=== PATIENT | male | born 1955 | race Caucasian/White ===

== ENCOUNTER 2024-03-17 00:53 | Inpatient (IN) | payer OTHER, MEDICARE ==
[2024-03-17] VITALS (82 sets, daily range): BP systolic 79–129; BP diastolic 61–92; PULSE 75–106; RESP 17–35; TEMP 97.7–102.3
[~2024-03-17] VITALS: Ht 177.8 cm; Wt 103.0 kg
[2024-03-17] MEDS ORDERED: AMIODARONE 150MG/100ML 100 ML IV ONE (01:15)
[2024-03-17] MEDS ORDERED: AMIODARONE 150MG/100ML 100 ML IV NR (01:30)
[2024-03-17] MEDS ORDERED: AMIODARONE HCL 900 MG in DEXT 5% WATER 500 ML IV NR (01:30)
[2024-03-17] MEDS ORDERED: ACETAMINOPHEN 650MG/20.3ML UDC NG PRN (01:45)
[2024-03-17] MEDS ORDERED: ACETAMINOPHEN 650MG SUPP PR PRN (01:45)
[2024-03-17] MEDS: SODIUM CHLORIDE 0.9% 1,000 ML IV ONE (01:56)
[2024-03-17] MEDS ORDERED: MIDAZOLAM HCL 2 MG/2 ML VIAL ONE ×3 (02:00→03:36)
[2024-03-17] MEDS ORDERED: LIDOCAINE HCL 1% 20ML VIAL ONE (02:00)
[2024-03-17] MEDS ORDERED: FENTANYL CITRATE/PF 50MCG/ML 2ML VIAL ONE (02:01)
[2024-03-17] MEDS ORDERED: HEPARIN 1000 UNITS/ML 10ML ONE (02:01)
[2024-03-17] MEDS ORDERED: IODIXANOL 320 MG/ML 150ML BOTTLE IV ONE (02:01)
[2024-03-17] MEDS: SODIUM BICARBONATE 150 MEQ in DEXTROSE 5% WATER 850 ML IV SCH (02:05)
[2024-03-17] MEDS: ONDANSETRON HCL 4MG/2ML INJ IV STA (02:05)
[2024-03-17] MEDS: EPINEPHRINE 5 MG in SODIUM CHLORIDE 0.9% 245 ML IV STA (02:08)
[2024-03-17] MEDS: NOREPINEPHRINE 8MG/250ML PMX 250 ML IV STA (02:09)
[2024-03-17] MEDS ORDERED: EPINEPHRINE 5 MG in SODIUM CHLORIDE 0.9% 245 ML IV NR (02:15)
[2024-03-17] MEDS: AMIODARONE HCL 900 MG in DEXT 5% WATER 500 ML IV ONE (02:17)
[2024-03-17] MEDS: MAGNESIUM 4 G PREMIX 100 ML IV ONE (02:19)
[2024-03-17 02:20] LABS: BG BASE EXCESS -6.9 mmol/L (-2.0-2.0); BG CARBOXYHEMOGLOBIN 0.3 % (0.5-1.5); BG DEOXYHEMOGLOBIN 2.6 % (0.0-5.0); BG FRACTION INSPIRED OXYGEN 100; BG HCO3 ACT 19.5 mmol/L (22.0-26.0); BG METHEMOGLOBIN 0.4 % (0.0-1.5); BG OXYGEN SATURATION 97.4 % (92.0-98.5); BG OXYHEMOGLOBIN 96.7 % (94.0-97.0); BG PCO2 42.5 mmHg (35.0-45.0); BG PO2 115.2 mmHg (75.0-100.0); BG SAMPLE SITE RIGHT FEMORAL; BG TOTAL HEMOGLOBIN 15.4 g/dL (12.0-18.0); BG TOTAL RESPIRATORY RATE 26 b/min; BG VENT MODE VENT - AC
[2024-03-17 02:25] LABS: BASOPHILS % 0.3 % (0.0-2.0); HEMATOCRIT. 41.6 % (42.0-52.0); HEMOGLOBIN. 13.6 g/dL (14.0-18.0); MEAN CORPUSCULAR HEMOGLOBIN 30.4 pg (28.0-32.0); MEAN CORPUSCULAR HGB CONC 32.7 g/dL (31.0-37.0); MEAN PLATELET VOLUME 10.5 fl (7.4-10.4); MONOCYTES % 2.3 % (2.0-8.0); NEUTROPHILS % 65.4 % (40.0-76.0); PLATELET 133 x1000/uL (130-400); RED BLOOD CELL COUNT 4.48 mill/uL (4.7-6.1); RED CELL DISTRIBUTION WIDTH 15.4 % (11.6-14.6); WHITE BLOOD COUNT 17.1 x1000/uL (4.5-11.0)
[2024-03-17 02:37] LABS: CHLORIDE 108 mEq/L (98-107); SODIUM 146 mEq/L (136-145)
[2024-03-17 02:38] LABS: CALCIUM 7.7 mg/dL (8.7-10.4); CARBON DIOXIDE 22 mEq/L (21-32)
[2024-03-17 02:43] LABS: CREATININE 1.3 mg/dL (0.6-1.3); GLUCOSE 309 mg/dL (70-105); UREA NITROGEN BLOOD 13 mg/dL (9-23)
[2024-03-17] MEDS ORDERED: CARVEDILOL 3.125 MG TABLET PO NR (02:45)
[2024-03-17] MEDS ORDERED: ASPIRIN 81MG TABLET PO NR (02:45)
[2024-03-17 02:50] LABS: D-DIMER 34.11 mg/L FEU (<0.50); INR 1.2; PARTIAL THROMBOPLASTIN TIME 30.5 sec (23.4-31.0); PROTHROMBIN TIME 13.2 sec (9.6-11.0)
[2024-03-17 03:25] LABS: PHOSPHORUS 8.6 mg/dL (2.5-4.9); TROPONIN I HIGH SENSITIVITY 921 ng/L (3.0-53)
[2024-03-17] MEDS ORDERED: ATROPINE SULFATE 1MG/10ML SYR IV PRN (03:30)
[2024-03-17] MEDS ORDERED: MIDAZOLAM HCL 2 MG/2 ML VIAL IV NR (05:00)
[2024-03-17] MEDS: LEVETIRACETAM 500MG PREMIX 100 ML IV SCH (05:30)
[2024-03-17] MEDS: MIDAZOLAM 100MG/100ML PMX 100 ML IV PRN (05:31)
[2024-03-17] MEDS ORDERED: EPINEPHRINE 0.1MG/ML (1:10,000) 10ML SYR ONE (06:00)
[2024-03-17 06:21] LABS: PHOSPHORUS 4.3 mg/dL (2.5-4.9)
[2024-03-17 06:25] LABS: LACTIC ACID 7.4 mmol/L (0.4-2.0)
[2024-03-17 06:28] LABS: TROPONIN I HIGH SENSITIVITY 12052 ng/L (3.0-53)
[2024-03-17 06:41] LABS: BG BASE EXCESS -2.4 mmol/L (-2.0-2.0); BG CARBOXYHEMOGLOBIN 0.2 % (0.5-1.5); BG DEOXYHEMOGLOBIN 3.4 % (0.0-5.0); BG FRACTION INSPIRED OXYGEN 100; BG HCO3 ACT 21.6 mmol/L (22.0-26.0); BG METHEMOGLOBIN 0.1 % (0.0-1.5); BG OXYGEN SATURATION 96.6 % (92.0-98.5); BG OXYHEMOGLOBIN 96.3 % (94.0-97.0); BG PCO2 35.6 mmHg (35.0-45.0); BG PO2 88.8 mmHg (75.0-100.0); BG SAMPLE SITE LEFT FEMORAL; BG TOTAL HEMOGLOBIN 17.9 g/dL (12.0-18.0); BG TOTAL RESPIRATORY RATE 26 b/min; BG VENT MODE VENT - AC
[2024-03-17] MEDS ORDERED: NOREPINEPHRINE 8MG in NS 250ML PREMIX IV ONE (07:00)
[2024-03-17] MEDS: KCL 20MEQ/100ML PREMIX 100 ML IV SCH (09:58)
[2024-03-17] MEDS ORDERED: LEVO112T7 PO (12:45)
[2024-03-17] MEDS: ACETAMINOPHEN 325MG TABLET PO PRN (15:08)
[2024-03-17] MEDS: LEVOTHYROXINE SODIUM 112MCG TABLET PO SCH (15:43)
[2024-03-17] MEDS: PIPERACILLIN/TAZO 3.375G/50ML 50 ML IV SCH (15:43)
[2024-03-17 16:58] LABS: HEMATOCRIT. 47.1 % (42.0-52.0); HEMOGLOBIN. 16.2 g/dL (14.0-18.0); MEAN CORPUSCULAR HEMOGLOBIN 30.9 pg (28.0-32.0); MEAN CORPUSCULAR HGB CONC 34.5 g/dL (31.0-37.0); MEAN CORPUSCULAR VOLUME 89.5 fL (80.0-94.0); MEAN PLATELET VOLUME 10.9 fl (7.4-10.4); PLATELET 152 x1000/uL (130-400); RED BLOOD CELL COUNT 5.26 mill/uL (4.7-6.1); RED CELL DISTRIBUTION WIDTH 15.4 % (11.6-14.6); WHITE BLOOD COUNT 13.3 x1000/uL (4.5-11.0)
[2024-03-17 17:11] LABS: POTASSIUM 4.1 mEq/L (3.5-5.1)
[2024-03-17 17:13] LABS: CALCIUM 8.3 mg/dL (8.7-10.4)
[2024-03-17] MEDS ORDERED: IPRATROPIUM/ALBUTEROL 0.5-3(2.5)MG/3ML NEB HHN PRN (17:15)
[2024-03-17 17:17] LABS: CREATINE KINASE MB FRACTION 132.3 ng/mL (0.5-3.6)
[2024-03-17 17:21] LABS: T4 FREE 0.91 ng/dL (0.89-1.76)
[2024-03-17 17:22] LABS: CREATININE 1.8 mg/dL (0.6-1.3); THYROID STIMULATING HORMONE 1.88 uIU/mL (0.55-4.78)
[2024-03-17 17:26] LABS: DIFFERENTIAL COMMENT 1
[2024-03-17] MEDS: BLOOD SUGAR DIAGNOSTIC STRIP TEST SCH (17:26)
[2024-03-17] MEDS: DEXMEDETOMIDINE 400 MCG/100 ML 100 ML IV PRN (17:50)
[2024-03-17] MEDS: VANCOMYCIN 1,750 MG in DEXT 5% WATER 500 ML IV NR (17:50)
[2024-03-17] MEDS: PANTOPRAZOLE SODIUM 40 MG/VIAL IV SCH (17:50)
[2024-03-17 18:18] LABS: BG BASE EXCESS 2.3 mmol/L (-2.0-2.0); BG CARBOXYHEMOGLOBIN 0.2 % (0.5-1.5); BG FRACTION INSPIRED OXYGEN 100; BG HCO3 ACT 24.2 mmol/L (22.0-26.0); BG METHEMOGLOBIN 0.1 % (0.0-1.5); BG OXYHEMOGLOBIN 98.7 % (94.0-97.0); BG PCO2 30.5 mmHg (35.0-45.0); BG PH 7.517 (7.350-7.450); BG PO2 130.3 mmHg (75.0-100.0); BG SAMPLE SITE ALINE; BG TOTAL HEMOGLOBIN 16.5 g/dL (12.0-18.0); BG TOTAL RESPIRATORY RATE 29 b/min; BG VENT MODE VENT - AC
[2024-03-17 18:33] LABS: CREATINE KINASE MB FRACTION 90.5 ng/mL (0.5-3.6)
[2024-03-17] MEDS: ENOXAPARIN 100MG/ML SYR SUBCUT SCH (20:26)
[2024-03-17] MEDS: ATORVASTATIN CALCIUM 40MG TABLET PO SCH (20:26)
[2024-03-17] MEDS: LEVETIRACETAM 1000MG PREMIX 100 ML IV SCH (20:26)
[2024-03-17] MEDS ORDERED: LEVETIRACETAM 1,000MG in NACL 100ML PREMIX IV SCH (21:00)
[2024-03-17] MEDS ORDERED: LEVETIRACETAM 500MG PREMIX 100 ML IV SCH (21:00)
[2024-03-17 21:20] LABS: PLATELET ESTIMATE NORMAL
[2024-03-17 23:17] LABS: CLARITY URINE CLOUDY (CLEAR); COLOR URINE DARK YELLOW (YELLOW); GLUCOSE URINE 3+ (NEGATIVE); KETONES URINE TRACE (NEGATIVE); LEUKOCYTE ESTERASE URINE NEGATIVE (NEGATIVE); NITRITE URINE NEGATIVE (NEGATIVE); OCCULT BLOOD URINE 3+ (NEGATIVE); PROTEIN URINE 3+ (NEGATIVE); SPECIFIC GRAVITY URINE 1.041 (1.005-1.030)
[2024-03-17 23:54] LABS: *AMPHETAMINES SCREEN URINE NEGATIVE (NEGATIVE); *BARBITURATES SCREEN URINE NEGATIVE (NEGATIVE); *BENZODIAZEPINES SCREEN URINE PRESUMPTIVE POSITIVE (NEGATIVE); *COCAINE SCREEN URINE NEGATIVE (NEGATIVE); CANNABINOID URINE SCREEN NEGATIVE (NEGATIVE); ECSTASY MDMA SCREEN URINE NEGATIVE (NEGATIVE); METHADONE URINE SCREEN NEGATIVE (NEGATIVE); OPIATES URINE SCREEN NEGATIVE (NEGATIVE); PHENCYCLIDINE URINE SCREEN NEGATIVE (NEGATIVE)
[2024-03-18] VITALS (66 sets, daily range): BP systolic 81–157; BP diastolic 60–104; PULSE 71–112; RESP 24–37; TEMP 99.4–102
[2024-03-18 00:44] LABS: SQUAMOUS EPITHELIAL CELL URINE FEW /lpf (RARE/1+)
[2024-03-18 00:45] LABS: WBC URINE 0-2 /hpf (0-2)
[2024-03-18 00:53] LABS: BACTERIA URINE NONE SEEN
[2024-03-18 01:52] LABS: CREATINE KINASE MB FRACTION 30.8 ng/mL (0.5-3.6)
[2024-03-18 06:30] LABS: BASOPHILS % 0.1 % (0.0-2.0); HEMATOCRIT. 45.2 % (42.0-52.0); HEMOGLOBIN. 15.7 g/dL (14.0-18.0); LYMPHOCYTES % 7.5 % (20.0-50.0); MEAN CORPUSCULAR HEMOGLOBIN 31.2 pg (28.0-32.0); MEAN CORPUSCULAR HGB CONC 34.8 g/dL (31.0-37.0); MEAN CORPUSCULAR VOLUME 89.6 fL (80.0-94.0); MEAN PLATELET VOLUME 10.6 fl (7.4-10.4); MONOCYTES % 8.8 % (2.0-8.0); NEUTROPHILS % 83.6 % (40.0-76.0); PLATELET 118 x1000/uL (130-400); RED BLOOD CELL COUNT 5.04 mill/uL (4.7-6.1); RED CELL DISTRIBUTION WIDTH 15.7 % (11.6-14.6); WHITE BLOOD COUNT 10.6 x1000/uL (4.5-11.0)
[2024-03-18] MEDS: VANCOMYCIN 750MG/250ML IV SCH (06:31)
[2024-03-18 06:35] LABS: POTASSIUM 3.7 mEq/L (3.5-5.1)
[2024-03-18 06:36] LABS: CALCIUM 7.9 mg/dL (8.7-10.4)
[2024-03-18] MEDS: SODIUM CHLORIDE 0.45% 500 ML IV ONE (07:30)
[2024-03-18 09:15] LABS: BG BASE EXCESS 0.5 mmol/L (-2.0-2.0); BG CARBOXYHEMOGLOBIN 0.8 % (0.5-1.5); BG DEOXYHEMOGLOBIN 5.3 % (0.0-5.0); BG FRACTION INSPIRED OXYGEN 80; BG HCO3 ACT 22.7 mmol/L (22.0-26.0); BG METHEMOGLOBIN 0.3 % (0.0-1.5); BG OXYGEN SATURATION 94.6 % (92.0-98.5); BG OXYHEMOGLOBIN 93.6 % (94.0-97.0); BG PCO2 30.4 mmHg (35.0-45.0); BG PH 7.491 (7.350-7.450); BG PO2 69.5 mmHg (75.0-100.0); BG SAMPLE SITE ALINE; BG TOTAL HEMOGLOBIN 15.5 g/dL (12.0-18.0); BG VENT MODE VENT - AC
[2024-03-18] MEDS: ASPIRIN 81MG TABLET PO SCH (09:26)
[2024-03-18] MEDS: LEVOTHYROXINE SODIUM 112MCG TABLET PO SCH (09:26)
[2024-03-18] MEDS: KCL 20MEQ/100ML PREMIX 100 ML IV SCH (09:52)
[2024-03-18 11:40] LABS: BG BASE EXCESS 1.3 mmol/L (-2.0-2.0); BG CARBOXYHEMOGLOBIN 0.1 % (0.5-1.5); BG DEOXYHEMOGLOBIN 1.1 % (0.0-5.0); BG FRACTION INSPIRED OXYGEN 100; BG HCO3 ACT 23.5 mmol/L (22.0-26.0); BG OXYGEN SATURATION 98.9 % (92.0-98.5); BG OXYHEMOGLOBIN 98.8 % (94.0-97.0); BG PH 7.497 (7.350-7.450); BG SAMPLE SITE ALINE; BG TOTAL HEMOGLOBIN 15.8 g/dL (12.0-18.0); BG VENT MODE VENT - AC
[2024-03-18] MEDS: CALCIUM 1250MG TABLET (500MG ELEMENTAL CALCIUM) PO NR (11:51)
[2024-03-18] MEDS: ACETAMINOPHEN 650MG/20.3ML UDC PO PRN (12:40)
[2024-03-18 16:54] LABS: CARBON DIOXIDE 26 mEq/L (21-32); CHLORIDE 108 mEq/L (98-107); POTASSIUM 3.7 mEq/L (3.5-5.1); SODIUM 141 mEq/L (136-145)
[2024-03-18 16:55] LABS: CALCIUM 7.9 mg/dL (8.7-10.4)
[2024-03-18 16:56] LABS: BG BASE EXCESS 3.1 mmol/L (-2.0-2.0); BG CARBOXYHEMOGLOBIN 0.5 % (0.5-1.5); BG DEOXYHEMOGLOBIN 1.5 % (0.0-5.0); BG FRACTION INSPIRED OXYGEN 80; BG HCO3 ACT 25.7 mmol/L (22.0-26.0); BG OXYGEN SATURATION 98.5 % (92.0-98.5); BG PCO2 33.4 mmHg (35.0-45.0); BG PH 7.504 (7.350-7.450); BG PO2 118.6 mmHg (75.0-100.0); BG SAMPLE SITE ALINE; BG TOTAL HEMOGLOBIN 15.6 g/dL (12.0-18.0); BG VENT MODE VENT - AC
[2024-03-18 17:00] LABS: AMMONIA < 17 uMol/L (<32); CREATINE KINASE MB FRACTION 10.5 ng/mL (0.5-3.6); CREATININE 2.2 mg/dL (0.6-1.3); GLUCOSE 153 mg/dL (70-105); UREA NITROGEN BLOOD 30 mg/dL (9-23)
[2024-03-18 17:01] LABS: ALANINE AMINOTRANSFERASE 261 IU/L (10-49)
[2024-03-18 17:02] LABS: ALBUMIN 3.4 g/dL (3.2-4.8); ASPARTATE AMINOTRANSFERASE 346 IU/L (<34); BILIRUBIN DIRECT 0.9 mg/dL (<=3.0); PROTEIN TOTAL 4.9 g/dL (6.0-8.3)
[2024-03-18 17:13] LABS: CREATINE KINASE 7096 IU/L (46-171)
[2024-03-18 17:17] LABS: TROPONIN I HIGH SENSITIVITY 7985 ng/L (3.0-53)
[2024-03-18] MEDS: KCL 20MEQ/100ML PREMIX 100 ML IV NR (17:20)
[2024-03-19] VITALS (88 sets, daily range): BP systolic 81–160; BP diastolic 62–140; PULSE 57–113; RESP 0–37; TEMP 96.5–100.7
[2024-03-19 00:25] LABS: BG BASE EXCESS -0.8 mmol/L (-2.0-2.0); BG CARBOXYHEMOGLOBIN 0.3 % (0.5-1.5); BG DEOXYHEMOGLOBIN 1.3 % (0.0-5.0); BG FRACTION INSPIRED OXYGEN 80%; BG HCO3 ACT 21.6 mmol/L (22.0-26.0); BG OXYGEN SATURATION 98.7 % (92.0-98.5); BG OXYHEMOGLOBIN 98.4 % (94.0-97.0); BG PCO2 30.1 mmHg (35.0-45.0); BG PH 7.473 (7.350-7.450); BG SAMPLE SITE ALINE; BG TOTAL HEMOGLOBIN 15.4 g/dL (12.0-18.0); BG VENT MODE VENT - AC
[2024-03-19 00:30] LABS: CREATINE KINASE MB FRACTION 9.4 ng/mL (0.5-3.6)
[2024-03-19 01:17] LABS: BG BASE EXCESS -6.5 mmol/L (-2.0-2.0); BG CARBOXYHEMOGLOBIN 0.3 % (0.5-1.5); BG DEOXYHEMOGLOBIN 1.6 % (0.0-5.0); BG FRACTION INSPIRED OXYGEN 80; BG HCO3 ACT 15.7 mmol/L (22.0-26.0); BG METHEMOGLOBIN 0.3 % (0.0-1.5); BG OXYGEN SATURATION 98.4 % (92.0-98.5); BG OXYHEMOGLOBIN 97.8 % (94.0-97.0); BG PCO2 22.7 mmHg (35.0-45.0); BG PH 7.459 (7.350-7.450); BG PO2 128.7 mmHg (75.0-100.0); BG SAMPLE SITE ALINE; BG TOTAL HEMOGLOBIN 11.2 g/dL (12.0-18.0); BG VENT MODE VENT - AC
[2024-03-19 01:22] LABS: TROPONIN I HIGH SENSITIVITY 6459 ng/L (3.0-53)
[2024-03-19] MEDS: PHENYLEPHRINE 50MG/250ML PMX 250 ML IV PRN (02:30)
[2024-03-19] MEDS ORDERED: NOREPINEPHRINE 8MG/250ML PMX 250 ML IV PRN (06:15)
[2024-03-19 07:21] LABS: POTASSIUM 4.3 mEq/L (3.5-5.1)
[2024-03-19 07:22] LABS: CALCIUM 8.4 mg/dL (8.7-10.4)
[2024-03-19 07:26] LABS: CREATININE 1.8 mg/dL (0.6-1.3)
[2024-03-19] MEDS: FAMOTIDINE 20MG/2ML VIAL IV SCH (09:35)
[2024-03-19] MEDS: SODIUM BICARBONATE 100 MEQ in DEXTROSE 5% WATER 900 ML IV SCH (09:35)
[2024-03-19] MEDS: ACETAMINOPHEN 650MG SUPP PR PRN (11:09)
[2024-03-19] MEDS: VANCOMYCIN 1.5GM/250ML 250 ML IV NR (13:39)
[2024-03-20] VITALS (97 sets, daily range): BP systolic 115–156; BP diastolic 65–117; PULSE 64–97; RESP 12–30; TEMP 97.2–99.3
[2024-03-20 05:21] LABS: BASOPHILS % 0.3 % (0.0-2.0); EOSINOPHILS % 0.2 % (0.0-5.0); HEMATOCRIT. 37.4 % (42.0-52.0); HEMOGLOBIN. 13.1 g/dL (14.0-18.0); LYMPHOCYTES % 10.8 % (20.0-50.0); MEAN CORPUSCULAR HEMOGLOBIN 31.1 pg (28.0-32.0); MEAN CORPUSCULAR HGB CONC 35.1 g/dL (31.0-37.0); MEAN CORPUSCULAR VOLUME 88.5 fL (80.0-94.0); MEAN PLATELET VOLUME 10.4 fl (7.4-10.4); MONOCYTES % 9.9 % (2.0-8.0); NEUTROPHILS % 78.8 % (40.0-76.0); PLATELET 125 x1000/uL (130-400); RED BLOOD CELL COUNT 4.22 mill/uL (4.7-6.1); RED CELL DISTRIBUTION WIDTH 14.8 % (11.6-14.6); WHITE BLOOD COUNT 7.7 x1000/uL (4.5-11.0)
[2024-03-20 05:24] LABS: POTASSIUM 3.8 mEq/L (3.5-5.1)
[2024-03-20 05:25] LABS: CALCIUM 8.2 mg/dL (8.7-10.4)
[2024-03-20 05:46] LABS: CREATININE 1.3 mg/dL (0.6-1.3)
[2024-03-20] MEDS: DEXTROSE 50% WATER 50ML SYRINGE IV PRN (08:16)
[2024-03-20] MEDS: AMIODARONE 150MG/100ML 100 ML IV NR (09:02)
[2024-03-20] MEDS: KCL 10MEQ/50ML PREMIX 50 ML IV NR (09:02)
[2024-03-20 09:18] LABS: BG BASE EXCESS 2.5 mmol/L (-2.0-2.0); BG CARBOXYHEMOGLOBIN 0.9 % (0.5-1.5); BG DEOXYHEMOGLOBIN 2.7 % (0.0-5.0); BG FRACTION INSPIRED OXYGEN 40; BG HCO3 ACT 25.7 mmol/L (22.0-26.0); BG METHEMOGLOBIN 0.3 % (0.0-1.5); BG OXYGEN SATURATION 97.3 % (92.0-98.5); BG OXYHEMOGLOBIN 96.1 % (94.0-97.0); BG PCO2 35.4 mmHg (35.0-45.0); BG PH 7.479 (7.350-7.450); BG PO2 90.1 mmHg (75.0-100.0); BG TOTAL HEMOGLOBIN 13.6 g/dL (12.0-18.0); BG VENT MODE VENT - SIMV/VC
[2024-03-20 09:27] LABS: BG SAMPLE SITE ARTERIAL LINE
[2024-03-20] MEDS: AMIODARONE HCL 900 MG in DEXT 5% WATER 482 ML IV NR (09:44)
[2024-03-20] MEDS ORDERED: AMIODARONE HCL 900 MG in DEXT 5% WATER 482 ML IV ONE (09:45)
[2024-03-20 15:12] LABS: CREATININE URINE RANDOM 79.6 mg/dL
[2024-03-20] MEDS: HYDRALAZINE 20MG/ML VIAL IV PRN (17:33)
[2024-03-20] MEDS: DEXTROSE 5% WATER 1,000 ML IV SCH (17:45)
[2024-03-20] MEDS: CARVEDILOL 3.125 MG TABLET PO SCH (21:09)
[2024-03-21] VITALS (102 sets, daily range): BP systolic 110–165; BP diastolic 59–109; PULSE 57–80; RESP 12–29; TEMP 95–99.3
[2024-03-21 05:19] LABS: HEMATOCRIT. 37.6 % (42.0-52.0); HEMOGLOBIN. 13.2 g/dL (14.0-18.0); MEAN CORPUSCULAR HGB CONC 35.1 g/dL (31.0-37.0); MEAN CORPUSCULAR VOLUME 88.2 fL (80.0-94.0); MEAN PLATELET VOLUME 10.3 fl (7.4-10.4); PLATELET 130 x1000/uL (130-400); RED BLOOD CELL COUNT 4.27 mill/uL (4.7-6.1); RED CELL DISTRIBUTION WIDTH 14.6 % (11.6-14.6)
[2024-03-21 05:26] LABS: CHLORIDE 105 mEq/L (98-107); POTASSIUM 3.2 mEq/L (3.5-5.1); SODIUM 138 mEq/L (136-145)
[2024-03-21 05:27] LABS: CALCIUM 7.9 mg/dL (8.7-10.4); CARBON DIOXIDE 28 mEq/L (21-32)
[2024-03-21 05:32] LABS: GLUCOSE 137 mg/dL (70-105); UREA NITROGEN BLOOD 29 mg/dL (9-23)
[2024-03-21 05:44] LABS: CREATINE KINASE 2191 IU/L (46-171)
[2024-03-21 05:54] LABS: DIFFERENTIAL COMMENT 1
[2024-03-21] MEDS: LOSARTAN 25 MG TABLET PO SCH (08:29)
[2024-03-21] MEDS: SPIRONOLACTONE 12.5MG TABLET PO SCH (08:29)
[2024-03-21] MEDS: KCL 20MEQ/100ML PREMIX 100 ML IV SCH (08:30)
[2024-03-21 15:33] LABS: PLATELET ESTIMATE NORMAL
[2024-03-21] MEDS ORDERED: ROCURONIUM BROMIDE 10MG/ML VIAL 5ML IV ONE (20:22)
[2024-03-21] MEDS ORDERED: DEXAMETHASONE 4MG/ML 1ML VIAL ONE (20:26)
[2024-03-21] MEDS ORDERED: ONDANSETRON HCL 4MG/2ML INJ ONE (20:26)
[2024-03-21] MEDS ORDERED: MIDAZOLAM HCL 2 MG/2 ML VIAL ONE (21:25)
[2024-03-21 23:07] LABS: HEMATOCRIT 45.3 % (42.0-52.0); HEMOGLOBIN 15.3 g/dL (14.0-18.0); MEAN CORPUSCULAR HEMOGLOBIN 30.8 pg (28.0-32.0); MEAN CORPUSCULAR HGB CONC 33.9 g/dL (31.0-37.0); PLATELET 148 x1000/uL (130-400); RED BLOOD CELL COUNT 4.98 mill/uL (4.7-6.1); RED CELL DISTRIBUTION WIDTH 15.6 % (11.6-14.6); WHITE BLOOD COUNT 12.7 x1000/uL (4.5-11.0)
[2024-03-21 23:13] LABS: CHLORIDE 102 mEq/L (98-107); SODIUM 136 mEq/L (136-145)
[2024-03-21 23:14] LABS: CALCIUM 8.6 mg/dL (8.7-10.4); CARBON DIOXIDE 27 mEq/L (21-32)
[2024-03-21 23:19] LABS: CREATININE 1.1 mg/dL (0.6-1.3); GLUCOSE 138 mg/dL (70-105); UREA NITROGEN BLOOD 25 mg/dL (9-23)
[2024-03-21] MEDS: CEFTRIAXONE 1GM/50ML 50ML IV SCH (23:34)
[2024-03-22] VITALS (66 sets, daily range): BP systolic 109–139; BP diastolic 57–90; PULSE 60–89; RESP 10–28; TEMP 95.1–100.6
[2024-03-22] MEDS: MORPHINE SULFATE 2 MG/ML INJ (NOT FOR IM USE) IV PRN (00:32)
[2024-03-22 05:48] LABS: HEMATOCRIT 37.4 % (42.0-52.0); HEMOGLOBIN 13.1 g/dL (14.0-18.0); MEAN CORPUSCULAR HEMOGLOBIN 30.9 pg (28.0-32.0); MEAN CORPUSCULAR HGB CONC 35.1 g/dL (31.0-37.0); MEAN CORPUSCULAR VOLUME 88.1 fL (80.0-94.0); PLATELET 135 x1000/uL (130-400); RED BLOOD CELL COUNT 4.25 mill/uL (4.7-6.1); RED CELL DISTRIBUTION WIDTH 14.6 % (11.6-14.6); WHITE BLOOD COUNT 10.5 x1000/uL (4.5-11.0)
[2024-03-22 05:55] LABS: CHLORIDE 104 mEq/L (98-107); POTASSIUM 3.7 mEq/L (3.5-5.1); SODIUM 136 mEq/L (136-145)
[2024-03-22 05:56] LABS: CALCIUM 8.2 mg/dL (8.7-10.4); CARBON DIOXIDE 25 mEq/L (21-32)
[2024-03-22 06:01] LABS: GLUCOSE 138 mg/dL (70-105); UREA NITROGEN BLOOD 27 mg/dL (9-23)
[2024-03-22 07:53] LABS: BG BASE EXCESS 1.1 mmol/L (-2.0-2.0); BG CARBOXYHEMOGLOBIN 1.8 % (0.5-1.5); BG DEOXYHEMOGLOBIN 2.4 % (0.0-5.0); BG FRACTION INSPIRED OXYGEN 35; BG HCO3 ACT 23.1 mmol/L (22.0-26.0); BG METHEMOGLOBIN 0.3 % (0.0-1.5); BG OXYGEN SATURATION 97.5 % (92.0-98.5); BG OXYHEMOGLOBIN 95.5 % (94.0-97.0); BG PCO2 29.5 mmHg (35.0-45.0); BG PH 7.512 (7.350-7.450); BG PO2 89.6 mmHg (75.0-100.0); BG SAMPLE SITE ALINE; BG TOTAL HEMOGLOBIN 13.6 g/dL (12.0-18.0); BG VENT MODE VENT - AC/VC
[2024-03-22] MEDS: POTASSIUM CHLORIDE 20MEQ/PACKET PO SCH (09:49)
[2024-03-22] MEDS: AMIODARONE 200MG TABLET PO SCH (09:52)
[2024-03-22 11:54] LABS: CREATINE KINASE 1560 IU/L (46-171)
[2024-03-23] VITALS (59 sets, daily range): BP systolic 114–151; BP diastolic 59–104; PULSE 59–80; RESP 9–29; TEMP 98.8–100.4
[2024-03-23 06:20] LABS: CHLORIDE 103 mEq/L (98-107); POTASSIUM 3.9 mEq/L (3.5-5.1); SODIUM 135 mEq/L (136-145)
[2024-03-23 06:21] LABS: CALCIUM 8.3 mg/dL (8.7-10.4); CARBON DIOXIDE 24 mEq/L (21-32)
[2024-03-23 06:26] LABS: CREATININE 1.2 mg/dL (0.6-1.3); GLUCOSE 123 mg/dL (70-105); UREA NITROGEN BLOOD 22 mg/dL (9-23)
[2024-03-23 06:35] LABS: HEMATOCRIT. 36.6 % (42.0-52.0); HEMOGLOBIN. 12.6 g/dL (14.0-18.0); MEAN CORPUSCULAR HEMOGLOBIN 31.1 pg (28.0-32.0); MEAN CORPUSCULAR HGB CONC 34.6 g/dL (31.0-37.0); MEAN CORPUSCULAR VOLUME 89.9 fL (80.0-94.0); MEAN PLATELET VOLUME 11.9 fl (7.4-10.4); PLATELET 144 x1000/uL (130-400); RED BLOOD CELL COUNT 4.07 mill/uL (4.7-6.1); RED CELL DISTRIBUTION WIDTH 15.1 % (11.6-14.6); WHITE BLOOD COUNT 12.6 x1000/uL (4.5-11.0)
[2024-03-23 06:49] LABS: DIFFERENTIAL COMMENT 1
[2024-03-23 16:06] LABS: PLATELET ESTIMATE NORMAL
[2024-03-24] VITALS (43 sets, daily range): BP systolic 103–153; BP diastolic 64–93; PULSE 52–81; RESP 0–27; TEMP 98.8–100.1
[2024-03-24] MEDS ORDERED: CHLORPROMAZINE HCL 25MG/1ML AMP IM PRN (01:00)
[2024-03-24] MEDS: DEXMEDETOMIDINE 400 MCG/100 ML 100 ML IV PRN (02:46)
[2024-03-24 03:10] LABS: HEMATOCRIT 35.2 % (42.0-52.0); HEMOGLOBIN 12.2 g/dL (14.0-18.0)
[2024-03-24 05:53] LABS: CARBON DIOXIDE 27 mEq/L (21-32); CHLORIDE 104 mEq/L (98-107); SODIUM 136 mEq/L (136-145)
[2024-03-24 05:54] LABS: CALCIUM 8.5 mg/dL (8.7-10.4); HEMATOCRIT. 34.5 % (42.0-52.0); MEAN CORPUSCULAR HGB CONC 34.7 g/dL (31.0-37.0); MEAN CORPUSCULAR VOLUME 89.3 fL (80.0-94.0); MEAN PLATELET VOLUME 10.9 fl (7.4-10.4); PLATELET 167 x1000/uL (130-400); RED BLOOD CELL COUNT 3.86 mill/uL (4.7-6.1); RED CELL DISTRIBUTION WIDTH 15.4 % (11.6-14.6); WHITE BLOOD COUNT 10.2 x1000/uL (4.5-11.0)
[2024-03-24 05:59] LABS: CREATININE 0.9 mg/dL (0.6-1.3); GLUCOSE 125 mg/dL (70-105); UREA NITROGEN BLOOD 25 mg/dL (9-23)
[2024-03-24 06:09] LABS: DIFFERENTIAL COMMENT 1
[2024-03-24] MEDS: DEXT 5%/0.45% NACL 1000ML 1,000 ML IV SCH (08:47)
[2024-03-24 08:55] LABS: CREATINE KINASE 557 IU/L (46-171)
[2024-03-24 16:07] LABS: CHLORIDE 104 mEq/L (98-107); POTASSIUM 4.1 mEq/L (3.5-5.1); SODIUM 136 mEq/L (136-145)
[2024-03-24 16:10] LABS: CALCIUM 8.5 mg/dL (8.7-10.4); CARBON DIOXIDE 23 mEq/L (21-32)
[2024-03-24 16:15] LABS: CREATININE 0.9 mg/dL (0.6-1.3); GLUCOSE 116 mg/dL (70-105); UREA NITROGEN BLOOD 24 mg/dL (9-23)
[2024-03-24] MEDS: ACETAMINOPHEN 650MG/20.3ML UDC PO NR (19:28)
[2024-03-24] MEDS: ENOXAPARIN 120MG/0.8ML SYR SUBCUT SCH (20:38)
[2024-03-25] VITALS (23 sets, daily range): BP systolic 122–147; BP diastolic 66–83; PULSE 10–86; RESP 9–31; TEMP 97.3–100.9
[2024-03-25 01:14] LABS: PLATELET ESTIMATE NORMAL
[2024-03-25 08:27] LABS: BG CARBOXYHEMOGLOBIN 0.4 % (0.5-1.5); BG DEOXYHEMOGLOBIN 1.6 % (0.0-5.0); BG HCO3 ACT 25.3 mmol/L (22.0-26.0); BG METHEMOGLOBIN 0.3 % (0.0-1.5); BG OXYGEN SATURATION 98.4 % (92.0-98.5); BG OXYHEMOGLOBIN 97.7 % (94.0-97.0); BG PCO2 31.4 mmHg (35.0-45.0); BG PH 7.524 (7.350-7.450); BG PO2 109.3 mmHg (75.0-100.0); BG SAMPLE SITE RIGHT RADIAL; BG TOTAL HEMOGLOBIN 11.9 g/dL (12.0-18.0); BG VENT MODE VENT - SIMV
[2024-03-25 08:41] LABS: HEMATOCRIT. 31.8 % (42.0-52.0); HEMOGLOBIN. 11.1 g/dL (14.0-18.0); MEAN CORPUSCULAR HEMOGLOBIN 30.9 pg (28.0-32.0); MEAN CORPUSCULAR HGB CONC 34.8 g/dL (31.0-37.0); MEAN CORPUSCULAR VOLUME 88.6 fL (80.0-94.0); MEAN PLATELET VOLUME 10.9 fl (7.4-10.4); PLATELET 191 x1000/uL (130-400); RED BLOOD CELL COUNT 3.59 mill/uL (4.7-6.1); RED CELL DISTRIBUTION WIDTH 15.1 % (11.6-14.6); WHITE BLOOD COUNT 9.7 x1000/uL (4.5-11.0)
[2024-03-25 08:45] LABS: DIFFERENTIAL COMMENT 1
[2024-03-25 08:56] LABS: CHLORIDE 102 mEq/L (98-107); POTASSIUM 3.7 mEq/L (3.5-5.1); SODIUM 137 mEq/L (136-145)
[2024-03-25 08:57] LABS: CALCIUM 8.6 mg/dL (8.7-10.4); CARBON DIOXIDE 26 mEq/L (21-32)
[2024-03-25 09:02] LABS: CREATININE 1.1 mg/dL (0.6-1.3); GLUCOSE 128 mg/dL (70-105); UREA NITROGEN BLOOD 27 mg/dL (9-23)
[2024-03-25 09:04] LABS: CREATINE KINASE 308 IU/L (46-171)
[2024-03-25 12:02] LABS: HEMATOCRIT 32.2 % (42.0-52.0); MEAN CORPUSCULAR HEMOGLOBIN 30.9 pg (28.0-32.0); MEAN CORPUSCULAR HGB CONC 34.2 g/dL (31.0-37.0); MEAN CORPUSCULAR VOLUME 90.4 fL (80.0-94.0); PLATELET 188 x1000/uL (130-400); RED BLOOD CELL COUNT 3.56 mill/uL (4.7-6.1); RED CELL DISTRIBUTION WIDTH 14.9 % (11.6-14.6); WHITE BLOOD COUNT 11.6 x1000/uL (4.5-11.0)
[2024-03-25 12:09] LABS: CHLORIDE 103 mEq/L (98-107); POTASSIUM 3.9 mEq/L (3.5-5.1); SODIUM 136 mEq/L (136-145)
[2024-03-25 12:10] LABS: CALCIUM 8.6 mg/dL (8.7-10.4); CARBON DIOXIDE 26 mEq/L (21-32)
[2024-03-25 12:15] LABS: CREATININE 1.2 mg/dL (0.6-1.3); GLUCOSE 130 mg/dL (70-105); UREA NITROGEN BLOOD 24 mg/dL (9-23)
[2024-03-26] VITALS (23 sets, daily range): BP systolic 126–156; BP diastolic 71–86; PULSE 65–79; RESP 14–27; TEMP 98.8–100.9
[2024-03-26 11:42] LABS: HEMATOCRIT. 29.8 % (42.0-52.0); HEMOGLOBIN. 10.1 g/dL (14.0-18.0); MEAN CORPUSCULAR HEMOGLOBIN 30.8 pg (28.0-32.0); MEAN CORPUSCULAR HGB CONC 34.1 g/dL (31.0-37.0); MEAN CORPUSCULAR VOLUME 90.3 fL (80.0-94.0); MEAN PLATELET VOLUME 10.2 fl (7.4-10.4); PLATELET 226 x1000/uL (130-400); RED CELL DISTRIBUTION WIDTH 15.3 % (11.6-14.6)
[2024-03-26 12:12] LABS: DIFFERENTIAL COMMENT 1
[2024-03-26 12:17] LABS: CARBON DIOXIDE 26 mEq/L (21-32); CHLORIDE 103 mEq/L (98-107); POTASSIUM 3.9 mEq/L (3.5-5.1); SODIUM 137 mEq/L (136-145)
[2024-03-26 12:18] LABS: CALCIUM 8.3 mg/dL (8.7-10.4)
[2024-03-26 12:23] LABS: GLUCOSE 135 mg/dL (70-105); UREA NITROGEN BLOOD 27 mg/dL (9-23)
[2024-03-26 13:38] LABS: PLATELET ESTIMATE NORMAL
[2024-03-27] VITALS (13 sets, daily range): BP systolic 122–142; BP diastolic 70–86; PULSE 63–75; RESP 12–27; TEMP 98.2–100.6; O2SAT 100
[2024-03-27 06:43] LABS: PLATELET ESTIMATE NORMAL
[2024-03-27] MEDS: FAMOTIDINE 20MG TABLET GT SCH (08:51)
[2024-03-27] MEDS ORDERED: LEVETIRACETAM 1,000MG in NACL 100ML PREMIX IV ONE (09:30)
[2024-03-27] MEDS ORDERED: LORAZEPAM 2MG/ML INJ IV PRN (09:45)
[2024-03-27 10:03] LABS: CHLORIDE 104 mEq/L (98-107); POTASSIUM 4.1 mEq/L (3.5-5.1); SODIUM 135 mEq/L (136-145)
[2024-03-27 10:04] LABS: CALCIUM 8.2 mg/dL (8.7-10.4); CARBON DIOXIDE 24 mEq/L (21-32)
[2024-03-27 10:09] LABS: GLUCOSE 128 mg/dL (70-105); UREA NITROGEN BLOOD 27 mg/dL (9-23)
[2024-03-27 10:21] LABS: CREATINE KINASE 1264 IU/L (46-171)
[2024-03-27] MEDS ORDERED: LEVETIRACETAM 1000MG PREMIX 100 ML IV NR (10:30)
[2024-03-27] MEDS ORDERED: LEVETIRACETAM 2,000 MG in SODIUM CHLORIDE 0.9% 100 ML IV SCH (21:00)
[2024-03-27] MEDS ORDERED: LEVETIRACETAM 1,000MG in NACL 100ML PREMIX IV SCH (21:00)
== END 2024-03-27 10:30 | disposition short-term general hospital (02) | DRG 3 ==
LOC: ER 00:53 → CVICU 02:05 → EDBEDREQTM 02:09 → EDBEDREQ 02:09 → 5EST 03-24 13:02
PROVIDERS: ADMIT Internal Medicine; ATTEND Internal Medicine
PROC: 0BH18EZ Insertion of Endotracheal Airway into Trachea, Via Natural or Artificial Opening Endoscopic (ICD-10-PCS; 2024-03-17)
PROC: 02HV33Z Insertion of Infusion Device into Superior Vena Cava, Percutaneous Approach (ICD-10-PCS; 2024-03-17)
PROC: B548ZZA Ultrasonography of Superior Vena Cava, Guidance (ICD-10-PCS; 2024-03-17)
PROC: 5A1955Z Respiratory Ventilation, Greater than 96 Consecutive Hours (ICD-10-PCS; 2024-03-17)
PROC: 4A023N7 Measurement of Cardiac Sampling and Pressure, Left Heart, Percutaneous Approach (ICD-10-PCS; 2024-03-17)
PROC: B2111ZZ Fluoroscopy of Multiple Coronary Arteries using Low Osmolar Contrast (ICD-10-PCS; 2024-03-17)
PROC: B2151ZZ Fluoroscopy of Left Heart using Low Osmolar Contrast (ICD-10-PCS; 2024-03-17)
PROC: 5A12012 Performance of Cardiac Output, Single, Manual (ICD-10-PCS; 2024-03-17)
PROC: 5A2204Z Restoration of Cardiac Rhythm, Single (ICD-10-PCS; 2024-03-17)
PROC: 0BH18EZ Insertion of Endotracheal Airway into Trachea, Via Natural or Artificial Opening Endoscopic (ICD-10-PCS; 2024-03-18)
PROC: 0B110F4 Bypass Trachea to Cutaneous with Tracheostomy Device, Open Approach (ICD-10-PCS; principal; 2024-03-21)
PROC: 0BJ08ZZ Inspection of Tracheobronchial Tree, Via Natural or Artificial Opening Endoscopic (ICD-10-PCS; 2024-03-21)
PROC: 0GBJ0ZZ Excision of Thyroid Gland Isthmus, Open Approach (ICD-10-PCS; 2024-03-21)
PROC: 4A00X4Z Measurement of Central Nervous Electrical Activity, External Approach (ICD-10-PCS; 2024-03-21)
PROC: 4A00X4Z Measurement of Central Nervous Electrical Activity, External Approach (ICD-10-PCS; 2024-03-23)
DX: A41.9 Sepsis, unspecified organism (principal); I21.3 ST elevation (STEMI) myocardial infarction of unspecified site; I46.2 Cardiac arrest due to underlying cardiac condition; I49.01 Ventricular fibrillation; J96.01 Acute respiratory failure with hypoxia; N17.0 Acute kidney failure with tubular necrosis; R65.21 Severe sepsis with septic shock; I50.23 Acute on chronic systolic (congestive) heart failure; J69.0 Pneumonitis due to inhalation of food and vomit; R40.20 Unspecified coma; G93.1 Anoxic brain damage, not elsewhere classified; I13.0 Hypertensive heart and chronic kidney disease with heart failure and stage 1 through stage 4 chronic kidney disease, or unspecified chronic kidney disease; J95.851 Ventilator associated pneumonia; I42.8 Other cardiomyopathies; I47.20 Ventricular tachycardia, unspecified; G40.89 Other seizures; E87.3 Alkalosis; E03.9 Hypothyroidism, unspecified; I25.10 Atherosclerotic heart disease of native coronary artery without angina pectoris; I34.0 Nonrheumatic mitral (valve) insufficiency; R73.9 Hyperglycemia, unspecified; E66.9 Obesity, unspecified; D64.9 Anemia, unspecified; E87.6 Hypokalemia; I48.0 Paroxysmal atrial fibrillation; N18.9 Chronic kidney disease, unspecified; E16.2 Hypoglycemia, unspecified; G47.33 Obstructive sleep apnea (adult) (pediatric); B97.89 Other viral agents as the cause of diseases classified elsewhere; Y84.8 Other medical procedures as the cause of abnormal reaction of the patient, or of later complication, without mention of misadventure at the time of the procedure; N40.0 Benign prostatic hyperplasia without lower urinary tract symptoms; Z95.3 Presence of xenogenic heart valve; Z79.899 Other long term (current) drug therapy; Z68.32 Body mass index [BMI] 32.0-32.9, adult; Y92.89 Other specified places as the place of occurrence of the external cause
CPT/HCPCS: 36415; 36573; 36600; 71045; 71275; 76770; 80048; 80061; 80076; 80202; 80305; 81003; 82040; 82140; 82375; 82550; 82553; 82570; 82805; 82962; 83036; 83605; 83735; 83880; 83970; 84100; 84145; 84156; 84439; 84443; 84484; 85014; 85018; 85025; 85027; 85379; 86850; 86900; 87070; 87077; 93005; 93306; 93970; 94003; 95816; 99291; A6261; C1725; C1726; J0282; J0360; J0696; J1100; J1644; J1650; J1953; J2250; J2270; J2405; J2470; J2543; J3010; J3370; J3475; J3480; J3490; J7030; J7050; J7060; J7070; Q9957; Q9967